=== PATIENT | male | born 1990 | race Caucasian/White ===

== ENCOUNTER 2021-03-11 16:49 | Emergency (ER) | payer MEDICAID ==
[~2021-03-11] VITALS: Ht 172.7 cm; Wt 113.4 kg
[2021-03-11 17:43] VITALS: BP 138/67
--- NOTE | 2021-03-11 17:57 | NUR ---
STREP SCREEN SENT TO LAB
--- NOTE | 2021-03-11 18:19 | NUR ---
NO NURSING INTERVENTIONS PERFORMED ON PT
--- NOTE | 2021-03-11 18:24 | NUR ---
Patient discharged with v/s stable. Written and verbal after care instructions ABOUT SORE THROAT given and explained. Patient verbalized understanding. Ambulatory with steady gait. All questions addressed prior to discharge. Advised to follow up with PMD.
== END 2021-03-11 18:23 | disposition home or self-care (01) ==
LOC: MED 16:49
DX: J02.9 Acute pharyngitis, unspecified (principal)
CPT/HCPCS: 87081; 99283